=== PATIENT | female | born 1965 | race Native Hawaiian/Other Pacific Islander ===

== ENCOUNTER 2022-02-24 07:52 | Outpatient (CLI) | payer OTHER | END 2022-02-24 19:16 | disposition home or self-care (01) | LOC: RAD 07:52 | PROVIDERS: ATTEND Obstetrics & Gynecology | DX: Z13.820 Encounter for screening for osteoporosis (principal); Z12.31 Encounter for screening mammogram for malignant neoplasm of breast ==

== ENCOUNTER 2023-03-01 07:49 | Outpatient (CLI) | payer OTHER | END 2023-03-01 19:16 | LOC: MAMMO 07:49 | PROVIDERS: ATTEND Obstetrics & Gynecology | DX: Z12.31 Encounter for screening mammogram for malignant neoplasm of breast (principal) ==